=== PATIENT | male | born 1990 | race Caucasian/White ===

== ENCOUNTER 2016-12-25 15:51 | Emergency (ER) | payer OTHER, MEDICAID ==
[2016-12-25] MEDS ORDERED: HYDROcod/ACETAM 5/325 MG TABLET PO STA (17:57)
[2016-12-25] MEDS ORDERED: IBUPROFEN 400 MG TABLET PO STA (17:57)
[2016-12-25] MEDS ORDERED: HYDROcod/ACETAM 5/325 MG TABLET ONE (18:01)
[2016-12-25] MEDS ORDERED: IBUPROFEN 400 MG TABLET PO ONE (18:01)
== END 2016-12-25 19:55 | disposition home or self-care (01) ==
DX: S82.55XA Nondisplaced fracture of medial malleolus of left tibia, initial encounter for closed fracture (principal); S87.82XA Crushing injury of left lower leg, initial encounter; S90.512A Abrasion, left ankle, initial encounter; W22.8XXA Striking against or struck by other objects, initial encounter; Y92.89 Other specified places as the place of occurrence of the external cause; Y99.0 Civilian activity done for income or pay; R03.0 Elevated blood-pressure reading, without diagnosis of hypertension; F17.200 Nicotine dependence, unspecified, uncomplicated
CPT/HCPCS: 29515; 73610; 99283; A9270

== ENCOUNTER 2017-11-06 08:00 | Outpatient (CLI) | payer MEDICAID, OTHER ==
[2017-11-06 19:05] LABS: BASOPHILS % (AUTO) 0.5 %; EOSINOPHILS # (AUTO) 0.2 10^3/uL (0.0-0.7); EOSINOPHILS % (AUTO) 2.1 %; HGB - HEMOGLOBIN 14.2 g/dL (14.0-18.0); LYMPHOCYTES # (AUTO) 2.3 10^3/uL (1.5-3.5); LYMPHOCYTES % (AUTO) 31.9 %; MEAN CORPUSCULAR HEMOGLOBIN 28.9 pg (27.0-31.0); MEAN CORPUSCULAR HGB CONC 33.1 g/dL (32.0-36.0); MEAN CORPUSCULAR VOLUME 87.6 fL (80.0-94.0); MONOCYTES # (AUTO) 0.8 10^3/uL (0.0-1.0); MONOCYTES % (AUTO) 11.6 %; NEUTROPHILS # (AUTO) 3.8 10^3/uL (1.5-6.6); NEUTROPHILS % (AUTO) 53.9 %; PLT - PLATELET COUNT 307 10^3/uL (130-450); RED CELL DISTRIBUTION WIDTH 12.7 % (12.0-15.0); WHITE BLOOD COUNT 7.1 x10^3/uL (4.8-10.8)
[2017-11-06 19:27] LABS: ALBUMIN 4.2 g/dL (3.2-5.5); ALBUMIN/GLOBULIN RATIO 1.2 (1.0-2.2); ALKALINE PHOSPHATASE 66 IU/L (42-121); ALT ALANINE AMINOTRANSFERASE 30 IU/L (10-60); AST ASPARTATE AMINOTRANSFERASE 21 IU/L (10-42); BILIRUBIN,TOTAL 0.5 mg/dL (0.2-1.0); BUN - BLOOD UREA NITROGEN 8 mg/dL (6-20); CALCIUM 8.9 mg/dL (8.5-10.3); CARBON DIOXIDE - CO2 27 mmol/L (21-32); CHLORIDE 104 mmol/L (101-111); CHOL/HDL RATIO 4.5 (<5.0); CHOLESTEROL 138 mg/dL; CREATININE 0.9 mg/dL (0.6-1.2); GFR - MDRD 102 (>89); GLUCOSE 93 mg/dL (70-100); HDL CHOLESTEROL 31 mg/dL; LDL CHOLESTEROL,CALCULATED 79 mg/dL; LDL/HDL RATIO 2.5 (<3.6); SODIUM 137 mmol/L (135-145); TOTAL PROTEIN 7.6 g/dL (6.7-8.2); VLDL CHOLESTEROL 28 mg/dL
== END 2017-11-06 08:01 | disposition home or self-care (01) ==
LOC: LAB.N 08:00
PROVIDERS: ATTEND Physician Assistant Medical
DX: K72.90 Hepatic failure, unspecified without coma (principal); T14.91 Suicide attempt
CPT/HCPCS: 36415; 80053; 80061; 83721; 85025

== ENCOUNTER 2018-06-10 09:21 | Outpatient (CLI) | payer MEDICAID ==
--- NOTE | 2018-06-10 16:21 | Ultrasound Report ---
Reason: LUMP OR MASS IN BREAST Procedure Date: 06/10/2018 Accession Number: [id number] / [id number] Procedure: US - Breast Unilateral Limited CPT Code: FULL RESULT: EXAM: Breast Unilateral Limited DATE: 06/10/2018 10:44 AM CLINICAL HISTORY: A palpable area in the left axilla is identified as the area of concern by the patient. COMPARISON: None. TECHNIQUE: Real-time scanning was performed with static images obtained. FINDINGS: Normal axillary soft tissues with normal-appearing lymph nodes is identified. There is no suspicious mass or fluid collection. IMPRESSION: Normal axillary soft tissue. [facility]
== END 2018-06-10 09:22 | disposition home or self-care (01) ==
LOC: DI 09:21
PROVIDERS: ATTEND Nurse Practitioner
DX: R22.31 Localized swelling, mass and lump, right upper limb (principal)
CPT/HCPCS: 76642

== ENCOUNTER 2018-07-03 09:22 | Outpatient (CLI) | payer MEDICAID | END 2018-07-03 09:23 | disposition home or self-care (01) | LOC: DI 09:22 | PROVIDERS: ATTEND Nurse Practitioner | DX: R22.9 Localized swelling, mass and lump, unspecified (principal); Z53.9 Procedure and treatment not carried out, unspecified reason ==